=== PATIENT | female | born 1975 | race Caucasian/White ===

== ENCOUNTER 2017-03-20 21:18 | Emergency (ER) | payer OTHER ==
[~2017-03-20] VITALS: Ht 152.4 cm; Wt 50.8 kg
[2017-03-20 21:21] VITALS: BP 141/84
--- NOTE | 2017-03-20 21:36 | NUR ---
PT TAKEN TO BED 5
--- NOTE | 2017-03-20 21:59 | NUR ---
42Y F BIB FAMILY C/O CP X 6 DAYS RADIATING TO LEFT UPPER CHEST WALL AND LEFT ARM. PT STATES PAIN IS PRESSURE LIKE 8/10 PAIN. PT DENIES ANY N/V/D, SOB AT THE MOMENT. PT IS AAOX4.
--- NOTE | 2017-03-20 22:21 | NUR ---
Dr. Jenkins evaluating patient at bedside.
[2017-03-20] MEDS ORDERED: DICYCLOMINE HCL LIQUID 10 MG/5 ML UDC PO ONE (22:35)
[2017-03-20] MEDS ORDERED: ALUMINUM HYD/MAG/SIMETHICONE 30 ML UDC PO ONE (22:35)
[2017-03-20] MEDS ORDERED: LIDOCAINE VISCOUS 2% 20 ML UDC PO ONE (22:35)
[2017-03-20 23:02] VITALS: BP 132/76
--- NOTE | 2017-03-20 23:02 | NUR ---
Patient discharged with v/s stable. Written and verbal after care instructions given and explained. Patient alert, oriented and verbalized understanding of instructions. Ambulatory with steady gait. All questions addressed prior to discharge. ID band removed. Patient advised to follow up with PMD. Rx of PRILOSEC 40MG given. Patient educated on indication of medication including possible reaction and side effects. Opportunity to ask questions provided and answered.
== END 2017-03-20 23:02 | disposition home or self-care (01) ==
LOC: MED 21:18
DX: K21.9 Gastro-esophageal reflux disease without esophagitis (principal); Z88.8 Allergy status to other drugs, medicaments and biological substances
CPT/HCPCS: 93005; 99283

== ENCOUNTER 2019-04-04 12:59 | Emergency (ER) | payer OTHER ==
[~2019-04-04] VITALS: Ht 157.5 cm; Wt 57.6 kg
[2019-04-04 13:09] VITALS: BP 109/67
--- NOTE | 2019-04-04 13:18 | NUR ---
Patient ambulated to bed 9. RN evaluating patient at bedside.
--- NOTE | 2019-04-04 13:25 | NUR ---
Dr. Vivar evaluating patient at bedside.
--- NOTE | 2019-04-04 13:29 | NUR ---
BIB SELF. AAO X4 C/O LOWER ABDOMINAL PAIN OF 10/10 RADIATING TO RIGHT FLANK, RIGHT HIP AND RIGHT LEG, HEMATURIA, DYSURIA X TODAY. PT DENIES FEVER AND VOMITING AND REPORTS NAUSEA AT THIS TIME. SKIN IS PINK/WARM/DRY; AAOX4 WITH EVEN AND STEADY GAIT; VSS; PATIENT POSITIONED FOR COMFORT; HOB ELEVATED; BEDRAILS UP X1; BED DOWN. ER MD MADE AWARE OF PT STATUS.
[2019-04-04] MEDS ORDERED: ONDANSETRON 4 MG/2 ML VIAL IVP ONE (13:30)
[2019-04-04] MEDS ORDERED: KETOROLAC 30 MG/ML VIAL IVP ONE (13:30)
[2019-04-04 13:55] LABS: APPEARANCE,URINE BLOODY (CLEAR); BILIRUBIN,URINE 2+ (NEGATIVE); BLOOD, URINE 3+ (NEGATIVE); COLOR,URINE RED (YELLOW); LEUKOCYTE ESTERASE ,URINE 3+ (NEGATIVE); NITRITE, URINE POSITIVE (NEGATIVE); PH,URINE 6.5 (5.0-9.0); UGLUCOSE NEGATIVE (NEGATIVE)
--- NOTE | 2019-04-04 13:55 | NUR ---
Patient returned from CT scan. RN re-evaluating patient at bedside.
[2019-04-04 14:04] LABS: RBC,URINE 80-100 /HPF (0-5)
[2019-04-04 14:05] LABS: WBC,URINE 16-25 (MOD) /HPF (0-5)
[2019-04-04] MEDS ORDERED: LEVOFLOXACIN 750 MG TAB PO ONE (14:15)
[2019-04-04] MEDS ORDERED: MORPHINE SULFATE 4 MG/ML SYR IVP ONE (14:20)
[2019-04-04 15:01] VITALS: BP 112/73
--- NOTE | 2019-04-04 15:01 | NUR ---
Patient discharged with v/s stable. Written and verbal after care instructions given and explained. Patient alert, oriented and verbalized understanding of instructions. Ambulatory with steady gait. All questions addressed prior to discharge. ID band removed. Patient advised to follow up with PMD. Rx of [place] and Levaquin given. Patient educated on indication of medication including possible reaction and side effects. Opportunity to ask questions provided and answered.
--- NOTE | 2019-04-06 17:56 | NUR ---
Contacted patient, spoke with patient and advised her that urine cultures were in and patient needed a new antibiotic prescription. [facility] [place] called and called in prescription for Cipro 500mg PO BID #6. Pt made aware and verbalized understanding. Patient instructed to stop her levaquin and start and complete new prescription Cipro. Pt verbalized understanding.
== END 2019-04-04 13:18 | disposition home or self-care (01) ==
LOC: MED 12:59
DX: N12 Tubulo-interstitial nephritis, not specified as acute or chronic (principal); Z88.8 Allergy status to other drugs, medicaments and biological substances; Z90.49 Acquired absence of other specified parts of digestive tract
CPT/HCPCS: 74176; 81001; 81025; 87086; 87186; 96374; 96375; 99284; J1885; J2270; J2405

== ENCOUNTER 2019-10-09 09:09 | Emergency (ER) | payer OTHER ==
[~2019-10-09] VITALS: Ht 154.9 cm; Wt 54.4 kg
[2019-10-09 09:20] VITALS: BP 118/64
--- NOTE | 2019-10-09 09:26 | NUR ---
Dr. Ronquillo is evaluating the patient at bedside.
--- NOTE | 2019-10-09 09:31 | NUR ---
44 y/o F c/o lower back pain since Saturday. Pain level 8/10, sharp radiating up to the neck and shoots down bilateral legs. Pt has been taking Baclofen without any relief. Pt able to ambulate with steady gait. Denies trauma or injury. A&O x4. Respirations even and unlabored. HOB elevated, bed in lowest position, side rail up x1. Waiting for ERMD to evaluate pt. Allergies: Dexamethasone Med hx: none
[2019-10-09] MEDS ORDERED: KETOROLAC 60 MG/2 ML VIAL IM ONE (09:35)
--- NOTE | 2019-10-09 09:41 | NUR ---
Patient taken to XRAY via wheelchair by tech.
--- NOTE | 2019-10-09 10:02 | NUR ---
Pt returned from x ray
[2019-10-09 10:18] VITALS: BP 111/64
== END 2019-10-09 10:15 | disposition home or self-care (01) ==
LOC: MED 09:09
DX: S33.5XXA Sprain of ligaments of lumbar spine, initial encounter (principal); Z88.8 Allergy status to other drugs, medicaments and biological substances; X50.0XXA Overexertion from strenuous movement or load, initial encounter; Y93.89 Activity, other specified; Y92.89 Other specified places as the place of occurrence of the external cause; Y99.8 Other external cause status
CPT/HCPCS: 72110; 81002; 81025; 96372; 99283; J1885

== ENCOUNTER 2019-10-11 02:46 | Emergency (ER) | payer OTHER ==
[~2019-10-11] VITALS: Ht 154.9 cm; Wt 54.4 kg
[2019-10-11 02:50] VITALS: BP 120/73
--- NOTE | 2019-10-11 02:55 | NUR ---
TO BED # 12 AMBULATORY
--- NOTE | 2019-10-11 03:14 | NUR ---
44 Y/O FEMALE PRESENTS TO ED, C/O LLQ PAIN STARTED 3 DAYS AGO. PAIN 10/10, RADIATES TO LOWER BACK. DENIES N/V/D. ABDOMEN SOFT AND NONTENDER. PT TOOK NAPROXEN FOR PAIN WITH NO RELIEF. DENIES ANY PAIN URINATING. NO FEVER NOTED. PT VSS. ERMD AWARE. WILL CONTINUE TO MONITOR.
[2019-10-11] MEDS ORDERED: KETOROLAC 30 MG/ML VIAL IM ONE (03:15)
[2019-10-11 05:16] LABS: APPEARANCE,URINE CLOUDY (CLEAR); BILIRUBIN,URINE NEGATIVE (NEGATIVE); BLOOD, URINE 1+ (NEGATIVE); COLOR,URINE YELLOW (YELLOW); LEUKOCYTE ESTERASE ,URINE 1+ (NEGATIVE); NITRITE, URINE NEGATIVE (NEGATIVE); PH,URINE 6.5 (5.0-9.0); UGLUCOSE NEGATIVE (NEGATIVE)
[2019-10-11] MEDS ORDERED: fentaNYL 0.05 MG/ML VIAL NS ONE (05:20)
[2019-10-11 05:44] LABS: URINE AMORPHOUS URATE 1+ /HPF (None Seen)
--- NOTE | 2019-10-11 06:00 | NUR ---
PT LAYING ON BED. CONTINUES TO C/O LLQ PAIN 04/11. WILL CONTINUE TO MONITOR.
[2019-10-11 06:32] VITALS: BP 122/80
--- NOTE | 2019-10-11 06:33 | NUR ---
Patient discharged with v/s stable. Written and verbal after care instructions given and explained. Patient alert, oriented and verbalized understanding of instructions. Ambulatory with steady gait. All questions addressed prior to discharge. ID band removed. Patient advised to follow up with PMD. Rx of [place], MACROBID given. Patient educated on indication of medication including possible reaction and side effects. Opportunity to ask questions provided and answered.
== END 2019-10-11 06:33 | disposition home or self-care (01) ==
LOC: MED 02:46
DX: N39.0 Urinary tract infection, site not specified (principal); Z88.8 Allergy status to other drugs, medicaments and biological substances
CPT/HCPCS: 74176; 81001; 81025; 87086; 96372; 99284; J1885; J3010

== ENCOUNTER 2019-10-16 10:14 | Emergency (ER) | payer OTHER ==
[~2019-10-16] VITALS: Ht 154.9 cm; Wt 55.8 kg
[2019-10-16 10:16] VITALS: BP 123/74
--- NOTE | 2019-10-16 10:22 | NUR ---
AMB TO BED 12 STEADY GAIT
--- NOTE | 2019-10-16 10:29 | NUR ---
44 y/o F presents to ER c/o lower back and left shoulder pain x2 weeks. Pt was seen at [facility] b 7 for back pain s/p fall. Pt prescribed Naproxen, without any relief. Pt seen at [facility] Oct 9 for LLQ pain and dx with UTI. Pt currently taking macrobid 1 cap BID. Current pain level 8/10, sharp radiating to bilateral hips and legs. HOB elevated, bed in lowest position, bed rail up x1. Waiting for ERMD to evaluate pt. Allergies: Dexamethasone Med hx: none
--- NOTE | 2019-10-16 10:45 | NUR ---
Beltran evaluating pt at bedside
[2019-10-16] MEDS ORDERED: predniSONE 20 MG TAB PO ONE (11:15)
[2019-10-16 12:07] VITALS: BP 129/76
--- NOTE | 2019-10-16 12:07 | NUR ---
Patient discharged with v/s stable. Written and verbal after care instructions given and explained. Patient alert, oriented and verbalized understanding of instructions. Ambulatory with steady gait. All questions addressed prior to discharge. ID band removed. Patient advised to follow up with PMD. Rx of Flexeril 5mg and Prednisone 50mg was given. Patient educated on indication of medication including possible reaction and side effects. Opportunity to ask questions provided and answered.
== END 2019-10-16 12:07 | disposition home or self-care (01) ==
LOC: MED 10:14
DX: M54.5 Low back pain (principal); M54.6 Pain in thoracic spine; Z88.8 Allergy status to other drugs, medicaments and biological substances
CPT/HCPCS: 99283; J7512

== ENCOUNTER 2021-03-13 14:39 | Emergency (ER) | payer OTHER ==
[~2021-03-13] VITALS: Ht 152.4 cm; Wt 63.5 kg
[2021-03-13 14:45] VITALS: BP 142/90
--- NOTE | 2021-03-13 14:45 | NUR ---
PATIENT AMBULATED TO BED 11
--- NOTE | 2021-03-13 15:01 | NUR ---
46 Y/O FEMALE FROM HOME C/O LLQ ABD PAIN THAT RADIATES TO RECTUM X 3 HRS PRIOR TO ARRIVAL. PT STATES 10/ SHARP PAIN. DENIES N/V/D. STATES LAST BM WAS THIS MORNING. ABD NONTENDER TO PALPATION. SKIN WARM, DRY, INTACT. AWAKE AND ALERT. VSS MEDHX: DENIES
--- NOTE | 2021-03-13 15:13 | NUR ---
Dr. Love is evaluating the patient at bedside.
[2021-03-13] MEDS: ONDANSETRON 4 MG ODT PO ONE (15:28)
[2021-03-13] MEDS: HYDROcodone/APAP 5/325 MG 1 TAB TAB PO ONE (15:28)
[2021-03-13 15:53] LABS: BASOPHILS % (AUTO) 0.7 % (0.0-2.0); EOSINOPHILS # (AUTO) 0.1 K/uL (0-0.4); EOSINOPHILS % (AUTO) 0.9 % (0.0-4.0); HEMATOCRIT 40.3 % (36-48); HEMOGLOBIN 13.4 g/dL (12.0-16.0); LYMPHOCYTES # (AUTO) 1.3 K/uL (2.5-16.5); LYMPHOCYTES % (AUTO) 22.7 % (20.5-51.1); MEAN CORPUSCULAR HEMOGLOBIN 32 pg (27-31); MEAN CORPUSCULAR HGB CONC 33 g/dL (33-37); MEAN CORPUSCULAR VOLUME 96.3 fL (80-94); MONOCYTES # (AUTO) 0.6 K/uL (0.8-1.0); MONOCYTES % (AUTO) 9.9 % (1.7-9.3); NEUTROPHILS # (AUTO) 3.9 K/uL (1.8-7.7); NEUTROPHILS % (AUTO) 65.8 % (42.2-75.2); PLATELET COUNT (AUTO) 275 K/uL (140-450); RED BLOOD CELL COUNT(AUTO) 4.19 MIL/uL (4.20-5.40); RED CELL DISTRIBUTION WIDTH 12.7 % (11.6-13.7); WHITE BLOOD COUNT (AUTO) 5.9 K/uL (4.8-10.8)
[2021-03-13 15:53] LABS: APPEARANCE,URINE CLEAR (CLEAR); BILIRUBIN,URINE NEGATIVE (NEGATIVE); BLOOD, URINE 1+ (NEGATIVE); COLOR,URINE YELLOW (YELLOW); LEUKOCYTE ESTERASE ,URINE NEGATIVE (NEGATIVE); NITRITE, URINE NEGATIVE (NEGATIVE); PH,URINE 7.5 (5.0-9.0); UGLUCOSE NEGATIVE (NEGATIVE)
[2021-03-13 16:07] LABS: WBC,URINE 0-5 /HPF (0-5)
[2021-03-13 16:16] LABS: ALBUMIN 3.9 g/dL (3.4-5.0); ANION GAP 9.7 (8-16); CARBON DIOXIDE 27.4 mmol/L (21-32); CREATININE 0.8 mg/dL (0.6-1.3); POTASSIUM 4.1 mmol/L (3.5-5.1); TOTAL BILIRUBIN 0.3 mg/dL (0.0-1.0)
[2021-03-13] MEDS ORDERED: IBUP-2213 PO (16:32)
[2021-03-13] MEDS ORDERED: MIRABULK PO (16:32)
--- NOTE | 2021-03-13 16:43 | NUR ---
Ultrasound at bedside.
--- NOTE | 2021-03-13 18:05 | NUR ---
Patient discharged with v/s stable. Written and verbal after care instructions given and explained. Patient alert, oriented and verbalized understanding of instructions. Ambulatory with steady gait. All questions addressed prior to discharge. ID band removed. Patient advised to follow up with PMD. Rx of Miralax and Ibuprofen given. Patient educated on indication of medication including possible reaction and side effects. Opportunity to ask questions provided and answered.
[2021-03-13 18:08] VITALS: BP 132/78
== END 2021-03-13 18:05 | disposition home or self-care (01) ==
LOC: MED 14:39
DX: R10.32 Left lower quadrant pain (principal); Z88.8 Allergy status to other drugs, medicaments and biological substances; Z79.899 Other long term (current) drug therapy
CPT/HCPCS: 36415; 74176; 76830; 80053; 81001; 81025; 83690; 85025; 99285; Q0162

== ENCOUNTER 2022-05-16 15:07 | Emergency (ER) | payer OTHER ==
[~2022-05-16] VITALS: Ht 153.2 cm; Wt 64.4 kg
[~2022-05-16 15:07] MED LIST: IBUP-2213 PO; MIRABULK PO
[2022-05-16 15:09] VITALS: BP 142/84
--- NOTE | 2022-05-16 15:17 | NUR ---
PT AMB TO BED 4.
--- NOTE | 2022-05-16 15:28 | NUR ---
47 y/o female bib self with c/o dizziness, chest pain, headache and eye discomfort x2 weeks. Patient has 4/10 pressure pain to head. Patient has chest pain that radiates from chest down to left arm. Patient denies fever, chills or vomiting. Patient has nausea. Medical History: Acid Reflux ALLERGY: DEXAMETHASONE
--- NOTE | 2022-05-16 15:46 | NUR ---
Dr. Dasilva evaluating patient at bedside
[2022-05-16] MEDS ORDERED: KETOROLAC 60 MG/2 ML VIAL IM ONE (15:55)
[2022-05-16] MEDS ORDERED: IBUP-2213 PO (16:00)
[2022-05-16 16:31] VITALS: BP 116/72
--- NOTE | 2022-05-16 16:31 | NUR ---
Patient discharged with v/s stable. Written and verbal after care instructions given. Patient alert, oriented and verbalized understanding of instructions. Ambulatory with steady gait. All questions addressed prior to discharge. ID band removed. Patient advised to follow up with PMD. Rx of Ibuprofen given. Opportunity to ask questions provided and answered.
--- NOTE | 2022-05-16 16:32 | NUR ---
Chart checked and completed. The patient's care was reviewed and supervised by Lida Lema RN.
== END 2022-05-16 16:31 | disposition home or self-care (01) ==
LOC: MED 15:07
DX: R07.89 Other chest pain (principal); R51.9 Headache, unspecified; Z79.1 Long term (current) use of non-steroidal anti-inflammatories (NSAID); Z79.899 Other long term (current) drug therapy; Z90.49 Acquired absence of other specified parts of digestive tract; Z88.8 Allergy status to other drugs, medicaments and biological substances
CPT/HCPCS: 81002; 81025; 93005; 96372; 99283; J1885